=== PATIENT | female | born 1950 | race Caucasian/White ===

== ENCOUNTER 2018-03-01 05:16 | Inpatient (IN) | payer MEDICARE ==
[~2018-03-01] VITALS: Ht 147.3 cm; Wt 73.7 kg
[~2018-03-01 05:16] MED LIST: CYCL-36 PO; DICL75 PO; RANI150 PO
[2018-03-01] MEDS ORDERED: ONDANSETRON HCL 4 MG/2 ML VIAL IV PUSH SCH (05:45)
[2018-03-01] MEDS ORDERED: SCOPOLAMINE 1.5 MG PATCH T-DERMAL SCH (05:45)
[2018-03-01] MEDS ORDERED: CEFAZOLIN INJ 2,000 MG in SODIUM CHLORIDE 0.9% INJ 100 ML IV SCH (05:45)
[2018-03-01] MEDS ORDERED: LACTATED RINGER'S 1000 ML IV PRN (05:45)
[2018-03-01] MEDS ORDERED: SODIUM CHLORID 0.9% 500 ML IV PRN (05:45)
[2018-03-01] MEDS ORDERED: metroNIDAZOLE 500 MG INJ 100 ML IV SCH (05:45)
[2018-03-01] MEDS ORDERED: APREPITANT 40 MG CAP PO SCH (05:45)
[2018-03-01] MEDS ORDERED: ACETAMINOPHEN 1000 MG/100 ML 100 ML IV SCH (05:45)
[2018-03-01] MEDS ORDERED: CHLORHEXIDINE GLUCONATE 2 % 1 PACK (2 CLOTHS) TOPICAL PRN (05:45)
[2018-03-01] MEDS ORDERED: METOPROLOL TARTRATE 25 MG TAB PO PRN (05:45)
[2018-03-01] MEDS ORDERED: POVIDONE IODINE 5% (ANTISEPSIS KIT) 4 APPLICATIONS EACH NARE PRN (05:45)
[2018-03-01] MEDS ORDERED: BUPR75TA PO (07:21)
[2018-03-01] MEDS ORDERED: LISI10TA3 PO (07:21)
[2018-03-01] MEDS ORDERED: LORA2TAB7 PO (07:21)
[2018-03-01] MEDS ORDERED: fentaNYL CITRATE 250 MCG/5 ML AMP ONE (09:22)
[2018-03-01] MEDS ORDERED: FAMOTIDINE 20 MG/2 ML VIAL ONE (09:28)
[2018-03-01] MEDS ORDERED: ceFAZolin INJ 1,000 MG VIAL ONE (09:32)
[2018-03-01] MEDS ORDERED: MIDAZOLAM HCL 2 MG/2 ML VIAL ONE (10:01)
[2018-03-01] MEDS ORDERED: NEOSTIGMINE 5 MG/5 ML SYRINGE IV PUSH ONE (12:00)
[2018-03-01] MEDS ORDERED: GLYCOPYRROLATE 1 MG/5 ML SYRINGE IV PUSH ONE (12:00)
[2018-03-01] MEDS ORDERED: LIDOCAINE HCL 1% PF 5 ML SYRINGE OTHER ONE (12:00)
[2018-03-01] MEDS ORDERED: ONDANSETRON HCL 4 MG/2 ML VIAL IV ONE (12:00)
[2018-03-01] MEDS ORDERED: PROPOFOL 200 MG/20 ML AMP IV ONE (12:00)
[2018-03-01] MEDS ORDERED: ROCURONIUM INJ 50 MG/5 ML SYRINGE IV PUSH ONE (12:00)
[2018-03-01] MEDS ORDERED: DEXAMETHASONE SOD PHOS 4 MG/ML VIAL IV ONE (12:00)
[2018-03-01] MEDS ORDERED: DO NOT ADM ANY ANTICOAGULANT DRUGS PRN (12:14)
[2018-03-01] MEDS ORDERED: diphenhydrAMINE HCL ELIXIR 12.5 MG/5 ML CUP PO PRN (12:15)
[2018-03-01] MEDS ORDERED: ACETAMINOPHEN 325MG/HYDROcodone 7.5MG/15ML UDC PO PRN (12:15)
[2018-03-01] MEDS ORDERED: ENALAPRILAT 1.25 MG/ML VIAL IV PUSH PRN (12:15)
[2018-03-01] MEDS ORDERED: ENOXAPARIN SODIUM 40 MG/0.4 ML SYRINGE SQ SCH (12:15)
[2018-03-01] MEDS ORDERED: diphenhydrAMINE HCL 50 MG/ML VIAL IV PUSH PRN (12:15)
[2018-03-01] MEDS ORDERED: MORPHINE SULFATE 30 MG/30 ML PCA IV SCH (12:15)
[2018-03-01] MEDS ORDERED: NALOXONE HCL 0.4 MG/ML AMP IV PUSH PRN (12:15)
[2018-03-01] MEDS ORDERED: ONDANSETRON HCL 4 MG/2 ML VIAL IV PUSH PRN (12:15)
[2018-03-01] MEDS ORDERED: SODIUM CHLORIDE 0.9% FLUSH 10 ML FLUSH IV FLUSH PRN (12:15)
[2018-03-01] MEDS ORDERED: Post-op Orders (for Pharmacy) OTHER ONE (12:15)
[2018-03-01] MEDS ORDERED: *PROMETHAZINE 25 MG/ML VIAL PERIprocedural use ONLY ONE (12:22)
[2018-03-01] MEDS ORDERED: *MEPERIDINE 25 MG INJ VIAL PERIprocedural Use ONLY ONE (12:45)
[2018-03-01] MEDS: D5-1/2 NS + KCL 20 MEQ INJ 1,000 ML IV SCH ×2 (14:00→20:44)
[2018-03-01] MEDS: PCA - TOTAL MG MORPHINE DELIVERED PER SHIFT SCH ×2 (14:00→20:47)
[2018-03-01] MEDS: METOCLOPRAMIDE HCL 10 MG/2 ML VIAL IV PUSH SCH ×2 (14:20→20:42)
[2018-03-01] MEDS: ENOXAPARIN SODIUM 40 MG/0.4 ML SYRINGE SQ SCH (16:00)
[2018-03-01] MEDS: metroNIDAZOLE 500 MG INJ 100 ML IV SCH (16:48)
[2018-03-01 17:41] VITALS: BP 144/68; PULSE 67; RESP 16; TEMP 97.3; O2SAT 99
[2018-03-01] MEDS: ACETAMINOPHEN 1000 MG/100 ML 100 ML IV SCH (18:54)
[2018-03-01 20:00] VITALS: BP 159/72; PULSE 67; RESP 18; TEMP 97.8; O2SAT 99
[2018-03-01 20:28] VITALS: RESP 18
[2018-03-01] MEDS: SODIUM CHLORIDE 0.9% FLUSH 10 ML FLUSH IV FLUSH SCH (20:43)
[2018-03-01 20:46] VITALS: O2SAT 95
[2018-03-01] MEDS: RESP: ALBUTEROL 2.5 MG/3 ML NEB (SCH) INH ×2 (20:46→23:17)
[2018-03-02] VITALS (9 sets, daily range): BP systolic 106–146; BP diastolic 53–70; PULSE 64–78; RESP 17–18; TEMP 97.2–98.4; O2SAT 93–99
[2018-03-02] MEDS: ACETAMINOPHEN 1000 MG/100 ML 100 ML IV SCH ×3 (00:56→12:00)
[2018-03-02] MEDS: metroNIDAZOLE 500 MG INJ 100 ML IV SCH ×2 (01:32→09:13)
[2018-03-02] MEDS: METOCLOPRAMIDE HCL 10 MG/2 ML VIAL IV PUSH SCH ×2 (01:33→09:14)
[2018-03-02] MEDS: RESP: ALBUTEROL 2.5 MG/3 ML NEB (SCH) INH ×5 (03:08→21:07)
[2018-03-02 05:24] LABS: AUTOMATED NEUTROPHIL # 10.6 TH/MM3 (1.8-7.7); BASOPHIL % 0.2 % (0.0-2.0); HEMATOCRIT 37.9 % (35.0-46.0); HEMOGLOBIN 12.4 GM/DL (11.6-15.3); LYMPH % 4.8 % (9.0-44.0); LYMPHOCYTE # 0.6 TH/MM3 (1.0-4.8); MEAN CELL VOLUME 90.2 FL (80.0-100.0); MEAN CORPUSCULAR HEMOGLOBIN 29.5 PG (27.0-34.0); MEAN CORPUSCULAR HGB CONC 32.7 % (32.0-36.0); MEAN PLATELET VOLUME 10.4 FL (7.0-11.0); MONO % 5.9 % (0.0-8.0); MONOCYTE # 0.7 TH/MM3 (0-0.9); NEUT % 89.1 % (16.0-70.0); PLATELET COUNT 305 TH/MM3 (150-450); RED CELL DISTRIBUTION WIDTH 14.9 % (11.6-17.2); WHITE BLOOD COUNT 11.9 TH/MM3 (4.0-11.0)
[2018-03-02] MEDS: PCA - TOTAL MG MORPHINE DELIVERED PER SHIFT SCH (05:57)
[2018-03-02] MEDS: D5-1/2 NS + KCL 20 MEQ INJ 1,000 ML IV SCH ×3 (06:00→20:04)
[2018-03-02 06:02] LABS: BICARBONATE 24.3 MEQ/L (21.0-32.0); CALCIUM 8.1 MG/DL (8.5-10.1); CREATININE 0.67 MG/DL (0.50-1.00); MAGNESIUM 2.2 MG/DL (1.5-2.5)
[2018-03-02] MEDS: PANTOPRAZOLE SOD 40 MG DELAYED RELEASE TAB PO SCH (09:13)
[2018-03-02] MEDS: SODIUM CHLORIDE 0.9% FLUSH 10 ML FLUSH IV FLUSH SCH ×2 (09:13→20:02)
[2018-03-02] MEDS: LISINOPRIL 10 MG TAB PO SCH (10:15)
[2018-03-02] MEDS: buPROPion HCL 75 MG TAB PO SCH ×2 (10:15→20:01)
--- NOTE | 2018-03-02 12:53 | HHI.PR ---
Subjective Subjective Notes Doing well, no GI complaints. Tolerating 30ml PO fluids, pain well controlled Objective Vitals/I&O Vital Signs Date Time Temp Pulse Resp B/P (MAP) Pulse Ox O2 Delivery O2 Flow Rate FiO2 03/02/18 11:20 97.8 70 18 106/53 (70) 97 03/01/18 20:46 Nasal Cannula 3.00 Labs Laboratory Tests Test 03/02/18 02:49 White Blood Count 11.9 Red Blood Count 4.20 Hemoglobin 12.4 Hematocrit 37.9 Mean Corpuscular Volume 90.2 Mean Corpuscular Hemoglobin 29.5 Mean Corpuscular Hemoglobin Concent 32.7 Red Cell Distribution Width 14.9 Platelet Count 305 Mean Platelet Volume 10.4 Neutrophils (%) (Auto) 89.1 Lymphocytes (%) (Auto) 4.8 Monocytes (%) (Auto) 5.9 Eosinophils (%) (Auto) 0.0 Basophils (%) (Auto) 0.2 Neutrophils # (Auto) 10.6 Lymphocytes # (Auto) 0.6 Monocytes # (Auto) 0.7 Eosinophils # (Auto) 0.0 Basophils # (Auto) 0.0 CBC Comment DIFF FINAL Differential Comment Blood Urea Nitrogen 8 Creatinine 0.67 Random Glucose 159 Calcium Level 8.1 Magnesium Level 2.2 Sodium Level 140 Potassium Level 3.8 Chloride Level 106 Carbon Dioxide Level 24.3 Anion Gap 10 Estimat Glomerular Filtration Rate 88 Abdomen: Post-op tenderness Extremities: Perfused Wound Wound : Wound Location: Abdomen Appearance: Clean & Dry A/P Assessment and Plan 67yo F POD# 1 laparoscopic RNY -Transition to oral pain control -Continue to increase fluids as tolerated -Continue with frequent ambulation The exam, history, and the medical decision-making described in the above note were completed with the assistance of the mid-level provider. I reviewed and agree with the findings presented. I attest that I had a [id number] encounter with the patient on the same day, and personally performed and documented my assessment and findings in the medical record. Discharge Planning D/C home most likely this evening. Kaylee Milan [facility] Mar 02, 2018 12:53 Randy Hoffman MD Mar 15, 2018 21:33
[2018-03-02] MEDS ORDERED: METOCLOPRAMIDE HCL 10 MG/2 ML VIAL IV PUSH PRN (14:00)
[2018-03-02] MEDS: ENOXAPARIN SODIUM 40 MG/0.4 ML SYRINGE SQ SCH (15:31)
[2018-03-02] MEDS: ACETAMINOPHEN 325MG/HYDROcodone 7.5MG/15ML UDC PO PRN ×2 (18:48→23:49)
[2018-03-03] VITALS: BP 128/73; PULSE 88; RESP 18; TEMP 98.3; O2SAT 95
[2018-03-03] MEDS: D5-1/2 NS + KCL 20 MEQ INJ 1,000 ML IV SCH (05:21)
[2018-03-03] MEDS: RESP: ALBUTEROL 2.5 MG/3 ML NEB (SCH) INH (07:45)
[2018-03-03 07:47] VITALS: O2SAT 94
[2018-03-03 08:00] VITALS: BP 133/70; PULSE 86; RESP 18; TEMP 98.2; O2SAT 94
[2018-03-03] MEDS: LISINOPRIL 10 MG TAB PO SCH (08:45)
[2018-03-03] MEDS: SODIUM CHLORIDE 0.9% FLUSH 10 ML FLUSH IV FLUSH SCH (08:45)
[2018-03-03] MEDS: buPROPion HCL 75 MG TAB PO SCH (08:45)
[2018-03-03] MEDS: PANTOPRAZOLE SOD 40 MG DELAYED RELEASE TAB PO SCH (08:45)
--- NOTE | 2018-03-15 09:34 | MP ---
cc: Randy Hoffman MD DATE OF OPERATION: 03/01/2018 PREOPERATIVE DIAGNOSES: 1. Morbid obesity with a body mass index of 35, complicated by essential hypertension. 2. Hiatal hernia. 3. Symptomatic cholelithiasis. PROCEDURES PERFORMED: 1. Laparoscopic Oleksandr-en-Y gastric bypass, 100 cm Oleksandr limb antegastric-antecolic. 2. Laparoscopic hiatal hernia repair. 3. Laparoscopic cholecystectomy. SURGEON: Randy Hoffman MD MODEL MAKER FIBERGLASS: John Taylor ANESTHESIA: General endotracheal anesthesia. ESTIMATED BLOOD LOSS: Scant. FINDINGS: Moderate-sized hiatal hernia, distended gallbladder. SPECIMENS: Gallbladder. COMPLICATIONS: None. DESCRIPTION OF PROCEDURE: SURGEON: Randy Hoffman MD ANESTHESIA: General endotracheal. ESTIMATED BLOOD LOSS: Less than 100 mL. FLUIDS: 2400 crystalloid. COMPLICATIONS: None. OPERATIVE PROCEDURE: The patient was given prophylactic antibiotic in pre-op holding. She was taken to the operating room and placed on the operating table in supine position. Bilateral sequential inflation devices were placed on the lower extremities. General anesthesia was instituted. A Green catheter was placed. The abdomen was prepped and draped in a sterile fashion. The supraumbilical region was anesthetized with 0.5% Marcaine with epinephrine approximately three fingerbreadths above the umbilicus. A skin incision was made to the left of the umbilicus. A 12 mm Optiview port was placed under direct vision. A pneumoperitoneum was created. Under direct vision one 5 mm right upper quadrant port, one 12 mm right upper quadrant port, as well as one 12 mm left upper quadrant and two 5 mm left upper quadrant ports were placed. Prior to placement of all ports the skin and peritoneum was anesthetized with 0.5% Marcaine with epinephrine. The patient was placed in reverse Trendelenburg position. A Keila-Flex retractor was placed and the liver was retracted. The gastroesophageal junction was identified. The angle of His was taken down. The hiatus was inspected. There was a moderate sized hiatal hernia identified. The right crura of the diaphragm was dissected, as well as the left crura of the diaphragm. The hernia sac was excised. The GE junction was mobilized into the abdominal cavity. The george of the diaphragm approximated with 2-0 silk suture in a [id number] manner. The lesser sac was entered on the lesser curvature approximately 5 cm distal to the gastroesophageal junction. The stomach was divided in this region with an Endo RANDI 3.5 mm load. A gastric pouch was created angled towards the angle of His using an additional three firings of the Endo RANDI 3.5 mm load. A 30-40 mL pouch was created. The staple line of the gastric remnant was covered with omentum. Attention was then focused on the gallbladder. The patient was placed right side up. The gallbladder was retracted into the upper abdomen. Infundibulum was retracted. Calot triangle open. The hepatoduodenal ligament incised. The cystic artery was identified. It was circumferentially dissected. It was ligated with Hemoclips and divided between the clips. The cystic duct was then identified, circumferentially, dissected, ligated with Hemoclips, divided between the clips. The gallbladder was then removed from the liver bed using a Bovie. Hemostasis achieved along the way using a Bovie. The gallbladder was retrieved from the peritoneal cavity in an Endopouch through the 12 mm port site. Attention was then focused on the gastrocolic ligament, and this was opened widely using the Harmonic scalpel. The transverse mesocolon was identified and was opened using the Harmonic scalpel creating a Y-defect. The ligament of Treitz was identified and brought into view. A point 50 cm distal to the ligament of Treitz was identified and the small bowel was transected in this region. The distal segment was run for a distance of 100 cm. At this point using the biliopancreatic limb an enterostomy was created with an Endo RANDI vascular load. This defect was closed with 2-0 Vicryl running in two layers. The proximal staple line was then brought up into the upper abdomen. An enterotomy was created. A gastrotomy was created. A gastrojejunostomy was created with an Endo RANDI 3.5 mm load creating a stoma of approximately 2 cm. This defect was closed in two layers using 2-0 Vicryl. Prior to placement of the second wave the anastomosis was tested with methylene blue. There was leakage of methylene blue along the suture lines; this was reinforced with a second wave of running 2-0 Vicryl with no further leak. Tisseel was then placed over the anastomosis. A 10 mm flat Jamal-Riojas drain was then placed posterior to the gastrojejunal anastomosis as well as the jejunostomy. The upper abdomen was irrigated with saline. The liver retractor was then removed. The pneumoperitoneum was released. All ports were removed. The SPENCER was secured to the abdominal wall using 2-0 silk. All skin incisions were closed with 4-0 PDS. The abdomen was cleaned. A sterile dressing was placed. The patient was awakened and taken to the recovery room stable. MD EZ Arango/EVELIN , 06:43 PM , 07:12 PM
== END 2018-03-03 11:41 | disposition home or self-care (01) | DRG 621 ==
LOC: HSDI 05:16 → N07A 16:05
PROVIDERS: ADMIT Surgery; ATTEND Surgery
PROC: 0BQT4ZZ Repair Diaphragm, Percutaneous Endoscopic Approach (ICD-10-PCS; 2018-03-01)
PROC: 0FT44ZZ Resection of Gallbladder, Percutaneous Endoscopic Approach (ICD-10-PCS; 2018-03-01)
PROC: 0D164ZA Bypass Stomach to Jejunum, Percutaneous Endoscopic Approach (ICD-10-PCS; principal; 2018-03-01 09:34)
DX: E66.01 Morbid (severe) obesity due to excess calories (principal); I10 Essential (primary) hypertension; K82.8 Other specified diseases of gallbladder; K80.20 Calculus of gallbladder without cholecystitis without obstruction; R73.9 Hyperglycemia, unspecified; K44.9 Diaphragmatic hernia without obstruction or gangrene; Z68.35 Body mass index [BMI] 35.0-35.9, adult
CPT/HCPCS: 80048; 83735; 85025; 88304; 94150; 94640; 94664; J0131; J0690; J1100; J1650; J2175; J2250; J2270; J2405; J2550; J2710; J2765; J3010; J3480; J7120; J7613; J8501

== ENCOUNTER 2019-01-22 05:05 | Inpatient (IN) ==
[2019-01-22] MEDS ORDERED: Chlorhexidine Gluconate 2% 1 Pack (2 Cloths) TOPICAL ONE (05:30)
[2019-01-22] MEDS ORDERED: Metoprolol Tartrate 25 MG Tablet PO ONE (05:30)
[2019-01-22] MEDS ORDERED: Dexamethasone Inj 20 MG/5 ML Vial IV.PUSH PRN (05:33)
[2019-01-22] MEDS ORDERED: Sodium Chlor 0.9% Inj 73.07 ML, Ropivacaine 0.5% PF Inj 24.63 ML, Ketorolac Inj 30 MG, ... P-ARTICULR SCH ×5 (05:34)
[2019-01-22] MEDS ORDERED: Chlorhexidine 4% Topical 120 APPLIC/120 ML Bottle TOPICAL SCH (05:45)
[2019-01-22] MEDS ORDERED: Dexamethasone PF Inj 10 MG/ML Vial IV.PUSH SCH (06:00)
[2019-01-22] MEDS ORDERED: TRANEXAMIC ACID IV.SIG SCH (06:00)
[2019-01-22] MEDS ORDERED: ceFAZolin 2 GM Premix Inj 2 GM/50 ML PIGGYBACK IV.SIG SCH (06:00)
[2019-01-22] MEDS ORDERED: Sodium Chlor 0.9% Inj 500 ML IV.SIG SCH (06:00)
[2019-01-22] MEDS ORDERED: SODIUM CHLOR 0.9% IV.SIG SCH (06:00)
[2019-01-22] MEDS ORDERED: Vancomycin Inj 1,000 MG in Sodium Chlor 0.9% Inj 250 ML IV.SIG SCH (06:00)
[2019-01-22] MEDS ORDERED: Bupivacaine Liposomal PF 1.3% Inj 20 ML Vial NERV BLOCK PRN (06:21)
[2019-01-22] MEDS ORDERED: Ropivacaine 0.5% PF Inj 20 ML Vial ONE (06:41)
[2019-01-22] MEDS ORDERED: Bisacodyl 10 MG Supp RECTAL PRN (06:58)
[2019-01-22] MEDS ORDERED: Post-op Orders (for Pharmacy) OTHER STA (06:58)
[2019-01-22] MEDS ORDERED: HYDROmorphone PF Inj 1 MG/ML Ampul IV.PUSH PRN (06:58)
[2019-01-22] MEDS ORDERED: Lidocaine PF 1% Inj 5 ML Syringe OTHER ONE (07:05)
[2019-01-22] MEDS ORDERED: Glycopyrrolate Inj 1 MG/5 ML Syringe IV.PUSH ONE (07:05)
[2019-01-22] MEDS ORDERED: Neostigmine Inj 5 MG/5 ML Syringe IV.PUSH ONE (07:05)
--- NOTE | 2019-01-22 08:31 | P.OP ---
Procedure: PREOPERATIVE DIAGNOSIS: Right knee osteoarthritis. POSTOPERATIVE DIAGNOSIS: Right knee osteoarthritis. PROCEDURE PERFORMED: Right total knee arthroplasty. SURGEON: Dr. Sumanth Lehman M.D. COVER CREASER: MARC Mao. ANESTHESIA: General with adductor canal femoral nerve block ESTIMATED BLOOD LOSS: 100 mL. COMPLICATIONS: None. IMPLANTS USED: Nilson triathlon size 2 press-fit femur [] Nlison triathlon size 2 tibia baseplate [] polyethylene insert []9 Justification: The patient presents to the undersigned at [facility] with chief complaints of severe right knee pain. The pain is severe progressive and interferes with activities of daily living. The patient has failed greater than 3 months of nonoperative conservative treatment to include nonsteroidal anti-inflammatory medications, analgesic medications, physical therapy, cortisone injection, home exercise program, activity modification, ambulatory assistive aids, and weight loss. X-rays of the right knee reveal severe end-stage osteoarthritis with joint space narrowing, subchondral sclerosis, subchondral cysts, osteophyte formation, deformity with subluxation. The patient was counseled as to the risks, benefits, alternatives to a total knee arthroplasty. The risks were discussed which include but are not limited to, anesthesia, bleeding, infection, damage to nerves and blood vessels, continued pain, stiffness, failure of implants, blood clots, pulmonary embolism , and even . The patient's pain is severe and favors benefits over risk. The patient does wish to proceed with surgery as outlined above. Procedure in detail: Written consent has been obtained from the patient. The patient was identified and taken to the operating room. The patient was placed supine on the operating room table. General anesthesia was administered to the patient as well as an adductor canal femoral nerve block. The patient was administered preoperative IV antibiotic. A well-padded tourniquet was placed in the right thigh. The right lower extremity was prepped and draped using isopropyl alcohol , Hibiclens solution, and ChloraPrep solution. After a timeout was performed an Esmarch bandage was used to exsanguinate the right lower extremity. The tourniquet was inflated to 250 mmHg. A longitudinal incision was made over the anterior aspect of the right knee. A medial parapatellar arthrotomy was performed. The patella was everted. Measurement of the patella revealed it to be 19 mm in thickness. Because of the size and the fact that the articular cartilage is still present along the undersurface of the patella I elected not to proceed with resurfacing. Attention was then turned to the femur where a intramedullary guide hima was placed. The distal femoral guide was set to remove 10 mm of distal femur 5 degrees off the anatomic valgus axis alignment. An oscillating saw was used to perform the distal femoral cut. Attention was then turned to the tibia where extramedullary tibia guide was set to remove 4 mm off the lowest portion of the medial tibial plateau. The tibial guide was pinned in place and the tibial cut was performed. A 9 mm spacer block showed full extension. Attention was turned back to the femur with the AP sizing block used to assist with appropriate measurement and placement of the 3 degree external rotation AP cutting guide. The anterior, posterior and chamfer cuts were then performed. The medial and lateral meniscus remnants were removed as well as bone and soft tissue debris from the posterior portion of the knee. A tibia baseplate was then pinned in place and the tibia was punched. Trial components were evaluated and final components were impacted in place with excellent stability noted in the operating room. With the final components implanted the knee could achieve full extension to 0 degrees and flexion to 140 , with no evidence of tibial liftoff. The testing of varus valgus balance appeared appropriate and symmetric with good stability. The patella was noted to track centrally. The tourniquet was deflated with total tourniquet time 31 minutes. Bovie cautery was then used for hemostasis. The knee was then thoroughly irrigated with sterile saline pulse lavage antibiotic impregnated solution. The arthrotomy incision was closed with #1 Vicryl suture. The subcutaneous layer closed with 2-0 Vicryl suture. The skin incision was then closed with Dermabond. Sterile dressings were applied. The patient tolerated the procedure well with no intraoperative complications noted. Sumanth Elena physician customer service assistant certified was present during the entire procedure to include patient positioning and the procedure itself. The medical necessity of a physician customer service assistant was indicated in this case due to the complexity of the procedure itself. He assisted with appropriate manipulation of the leg and also retraction of the muscle, tendon, bone and neurovascular structures. He assisted with preparation of bone and also implantation of the prosthetic replacement. There was a missile and missile checkout technician within the room that was focused on handling of instruments but was not available to assist with the actual surgery itself. Surgeon: Sumanth Cohen MD
[2019-01-22] MEDS ORDERED: Tranexamic Acid Inj 3,000 MG in Sodium Chlor 0.9% Inj 100 ML P-ARTICULR SCH (08:36)
[2019-01-22] MEDS ORDERED: *Meperidine Inj 25 MG/ML Vial PERIprocedural Use ONLY ONE (08:50)
[2019-01-22] MEDS ORDERED: *Ondansetron Inj 4 MG/2 ML Vial PERIprocedural Use ONLY ONE (08:50)
[2019-01-22] MEDS ORDERED: *morphine SULFATE 4 MG/ML PERIprocedure ONLY ONE (09:10)
--- NOTE | 2019-01-22 09:25 | XR ---
EXAM DATE: 01/22/2019 9:23 AM EST AGE/SEX: 68 years / Female INDICATIONS: Post op right knee prosthesis. CLINICAL DATA: This is the patient's initial encounter. Patient reports that signs and symptoms have been present for 1 day and indicates a pain score of 9/10. MEDICAL/SURGICAL HISTORY: None. None. COMPARISON: No prior exams available for comparison. FINDINGS: There is a total knee prosthesis in place. The prosthetic components appear well placed. There is air seen in the joint and the surrounding soft tissues which is an expected postoperative finding. CONCLUSION: Successful placement of prosthetic knee components. Electronically signed by: Kei Fofana MD Board Certified Radiologist 01/22/2019 9:24 AM EST
[2019-01-22] MEDS ORDERED: fentaNYL Citrate Inj 100 MCG/2 ML Ampul ONE ×2 (09:36→09:37)
[2019-01-22] MEDS ORDERED: Morphine Inj 4 MG/ML Vial ONE (09:36)
[2019-01-22] MEDS: Senna/Docusate Sodium 8.6/50 MG Tablet PO SCH ×2 (09:50→20:24)
[2019-01-22] MEDS: Multivitamin/Minerals Therapeutic Tablet PO SCH ×2 (09:50→20:24)
[2019-01-22] MEDS ORDERED: *morphine SULFATE 10 MG/ML PERIprocedure ONLY ONE (10:05)
[2019-01-22] MEDS: ceFAZolin 2 GM Premix Inj 2 GM/50 ML PIGGYBACK IV.SIG SCH ×2 (14:13→18:32)
[2019-01-22] MEDS: LORazepam 1 MG Tablet PO SCH (20:24)
[2019-01-23] MEDS: ceFAZolin 2 GM Premix Inj 2 GM/50 ML PIGGYBACK IV.SIG SCH (00:16)
[2019-01-23 06:38] LABS: Hematocrit 32.3 % (35.0-46.0); Hemoglobin 10.8 gm/dL (11.6-15.3)
[2019-01-23] MEDS: Multivitamin/Minerals Therapeutic Tablet PO SCH ×2 (08:50→21:05)
[2019-01-23] MEDS: Senna/Docusate Sodium 8.6/50 MG Tablet PO SCH ×2 (08:51→21:05)
--- NOTE | 2019-01-23 08:51 | P.PNOP ---
Subjective Interval history: pain controlled. Physical Exam Vital signs: Vital Signs 01/22/19 09:00 01/22/19 09:15 01/22/19 09:30 Temperature Pulse Rate 74 67 66 Respiratory Rate 13 13 12 Blood Pressure 111/56 L 105/52 L 102/53 L Pulse Oximetry 100 100 98 01/22/19 09:36 01/22/19 10:00 01/22/19 11:00 Temperature 97.7 F Pulse Rate 68 66 Respiratory Rate 15 14 Blood Pressure 115/64 98/54 L Pulse Oximetry 98 100 94 L 01/22/19 11:41 01/22/19 12:00 01/22/19 16:08 Temperature 97.8 F 97.2 F L Pulse Rate 64 71 55 L Respiratory Rate 16 18 16 Blood Pressure 102/53 L 125/62 102/63 Pulse Oximetry 99 97 97 01/22/19 20:55 01/23/19 00:15 01/23/19 00:47 Temperature 97.5 F L 97.3 F L Pulse Rate 61 61 Respiratory Rate 16 17 16 Blood Pressure 99/62 L 117/54 L Pulse Oximetry 97 96 01/23/19 03:00 01/23/19 04:25 Temperature 98.0 F Pulse Rate 75 Respiratory Rate 17 18 Blood Pressure 95/54 L Pulse Oximetry 97 Intake & Output 01/22/19 01/23/19 01/23/19 18:59 06:59 18:59 Intake Total 1458.3 / 1458.3 520 / 520 Output Total 100 / 100 Balance 1358.3 / 1358.3 520 / 520 Weight 55.4 kg 55.4 kg Intake: IV 1458.3 / 1458.3 100 / 100 LR 1000 mL Inj 1,000 ML @ 30 1000 / 1000 mls/hr IV.SIG .Q24H JAMES Rx#: [id number] Cyklokapron Inj 830 MG In NS 108.3 / 108.3 Inj 100 ML @ 200 mls/hr IV.SIG ONCE JAMES Rx#:[id number] Vancomycin Inj 1,000 MG In NS 250 / 250 Inj 250 ML @ 250 mls/hr IV.SIG FARM SERVICE CONSULTANT JAMES Rx#:[id number] Ancef 2 GM Premix Inj 2 gm In 100 / 100 100 / 100 50 ml @ 100 mls/hr IV.SIG Q6H JAMES Rx#:[id number] Oral 420 / 420 Output: Estimated Blood Loss 100 / 100 Other: # Voids 1 Date of Last Bowel Movement 01/21/19 # Bowel Movements 0 Narrative: in bed, nad dressing c/d/i neg homans nvi Results - Labs CBC & Chem 7: 01/23/19 05:29 Laboratory Results - last 24 hr 01/23/19 05:29 Hgb 10.8 L Hct 32.3 L - Imaging Impressions Knee X-Ray 01/22/19 06:58 CONCLUSION: Successful placement of prosthetic knee components. Assessment and Plan - Ortho Post Op Day # 1 - Assessment and Plan s/p R TKA wbat maintain dressing asa 81 d/c planning home with [facility] and pt - cleared today if does well in PT f/up dr. erickson 2 weeks
--- NOTE | 2019-01-23 08:52 | P.DCO ---
- Physical Therapy Physical Therapy: Gait training, Safety evaluation, Transfer training, bed to chair Knee: Total knee, Protocol: Right, Full weight bearing Right Lower Extremity Weight Bearing: Weight bearing as tolerated - Nursing RN days per week: 1 Nursing: Dressing changes - Case Management Consult Case Management Consult-Home Health: Yes - Certification Need for Home Health services: I have seen patient Trini Mcneal on 01/23/19. My clinical findings support the need for the requested home health care services because: Need for Home Health Services: Limited ability to care for self, High risk of falls Homebound Certification: I certify that my clinical findings support that this patient is homebound because: Homebound Certification: Post-op weakness, Unsteady gait/balance
[2019-01-23] MEDS: LORazepam 1 MG Tablet PO SCH (21:05)
[2019-01-24 01:16] VITALS: O2SAT 96
[2019-01-24] MEDS: Multivitamin/Minerals Therapeutic Tablet PO SCH (09:00)
[2019-01-24] MEDS: Senna/Docusate Sodium 8.6/50 MG Tablet PO SCH (09:00)
[2019-01-24 09:17] VITALS: BP 108/51; PULSE 77; RESP 20; TEMP 98
--- NOTE | 2019-01-24 14:17 | MD ---
cc: Sumanth Cohen MD DATE OF DISCHARGE: 01/24/2019 ADMITTING DIAGNOSIS: Severe degenerative osteoarthritis, right knee. DISCHARGE DIAGNOSIS: Severe degenerative osteoarthritis, right knee. HISTORY OF PRESENT ILLNESS: Mrs. Mcneal is a 68-year-old female who is a patient of Dr. Sumanth Cohen at [facility]. Currently, she is being evaluated and treated for progressive right knee pain. The patient states the pain has been a severe aching sensation which is aggravated by weightbearing activities. Currently, she is feeling as though the pain is limiting her activities of daily living. She is a fall risk. She notes she has no alleviating factors of the pain, although she has tried medications, assistive devices, physical therapy, home exercise program as well as corticosteroid injection without relief of her symptoms. She does have x-ray evidence of severe degenerative osteoarthritis of the right knee. While in the office, the patient was counseled on her diagnosis and treatment options. Risks, benefits, and indications all were discussed. The patient did elect to proceed with surgical intervention to include a right total knee arthroplasty. Date of surgery was 01/22/2019, right total knee arthroplasty. Postop after surgery, the patient was admitted to [facility] where she received appropriate medical management, pain control, DVT prophylaxis, as well as physical therapy. Discharged from the hospital. The patient has been cleared to go home where she will receive home health care and home physical therapy. She is in stable condition. She may weight bear as tolerated. She has been instructed on wound care management. She has been provided prescriptions for pain control, DVT prophylaxis, as well as nausea medicine. She has also been provided a followup appointment approximately 2 weeks from her date of surgery. The patient has asked appropriate questions, which have been answered. The patient will be discharged. Dictated by LISSETH Mao MD TAY Stallworth/perri/sherice , 01:22 PM , 01:29 PM
== END 2019-01-24 11:32 | disposition home health service (06) | DRG 470 ==
LOC: HSDI 05:05 → N06 11:55
PROVIDERS: ADMIT Orthopaedic Surgery Sports Medicine; ATTEND Orthopaedic Surgery Sports Medicine
CPT/HCPCS: 73560; 85014; 85018; 86850; 86900; 86901; 94150; 97110; 97116; 97150; 97162; 97166; C1776; C9290; J0171; J0690; J0735; J1100; J1580; J1885; J2175; J2250; J2270; J2405; J2704; J2710; J2795; J3010; J3370; J7050; J7120; J8501; L1830